=== PATIENT | female | born 2000 | race Caucasian/White ===

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

== ENCOUNTER 2021-01-11 00:33 | Inpatient (IN) | payer MEDICAID ==
[~2021-01-11] VITALS: Ht 157.5 cm; Wt 54.9 kg
[~2021-01-11 00:33] MED LIST changes: +CEFTIN500 MG PO; +CEPHALEXIN500 M1 PO; +NORCO 325 MG-51 TAB PO; +ZOFRAN ODT4 MG PO
[2021-01-11 02:15] LABS: COLLECTION METHOD CLEAN CATCH
[2021-01-11 02:21] LABS: BASO % 0.3 % (0.0-2.0); EOS # 0.3 K/mm3 (0.0-0.7); EOS % 2.2 % (0-4.0); GRAN # 8.9 K/mm3 (1.4-6.5); GRAN % 75.4 % (42.2-75.2); HEMOGLOBIN 12.1 g/dl (12.0-15.0); LYMPH # 1.8 K/mm3 (1.2-3.4); MEAN CELL VOLUME 91 fl (80.0-95.0); MEAN CORPUSCULAR HEMOGLOBIN 31 pg (26.0-32.0); MEAN CORPUSCULAR HGB CONC 34 g/dl (33.0-37.0); MEAN PLATELET VOLUME 9.6 fl (7.4-10.4); MONO # 0.8 K/mm3 (0.1-0.6); MONO % 6.8 % (1.7-9.3); PLATELET COUNT 259 K/mm3 (130-400); RED BLOOD COUNT 3.88 M/mm3 (4.10-5.30); REDCELL DISTRIBUTION WIDTH-CV 12.1 % (11.5-14.5)
[2021-01-11 02:25] LABS: HEMATOCRIT 35.3 % (35.0-45.0)
[2021-01-11 02:31] LABS: MUCOUS Present /lpf; PH 6 (5-8); URINE APPEARANCE Hazy; URINE BACTERIA Rare /hpf; URINE BILIRUBIN Negative (NEGATIVE); URINE BLOOD 1+ (NEGATIVE); URINE COLOR Yellow; URINE GLUCOSE Negative (NEGATIVE); URINE KETONE Negative (NEGATIVE); URINE LEUKOCYTE ESTERASE 1+ (NEGATIVE); URINE NITRATE Negative (NEGATIVE); URINE PROTEIN(semi-quant) Negative (NEGATIVE); URINE UROBILINOGEN Negative (NEGATIVE)
[2021-01-11 02:44] LABS: ALBUMIN 3.3 gm/dL (3.5-5.0); BILIRUBIN,TOTAL 0.5 mg/dL (0.2-1.2); C-REACTIVE PROTEIN 12.1 mg/dL (0.00-0.50); CALCIUM 9.1 mg/dL (8.4-10.2); CREATININE, serum 0.72 mg/dL (0.57-1.11); POTASSIUM 3.9 mmol/L (3.5-4.5); TOTAL PROTEIN 6.8 gm/dL (6.2-8.1)
[2021-01-11 08:43] LABS: BASO % 0.3 % (0.0-2.0); EOS # 0.3 K/mm3 (0.0-0.7); EOS % 3.1 % (0-4.0); GRAN # 6.9 K/mm3 (1.4-6.5); GRAN % 70.2 % (42.2-75.2); LYMPH # 1.8 K/mm3 (1.2-3.4); LYMPH % 18.2 % (20.0-51.0); MEAN CELL VOLUME 90 fl (80.0-95.0); MEAN CORPUSCULAR HEMOGLOBIN 31 pg (26.0-32.0); MEAN CORPUSCULAR HGB CONC 35 g/dl (33.0-37.0); MEAN PLATELET VOLUME 9.3 fl (7.4-10.4); MONO # 0.8 K/mm3 (0.1-0.6); MONO % 7.9 % (1.7-9.3); PLATELET COUNT 230 K/mm3 (130-400); RED BLOOD COUNT 3.85 M/mm3 (4.10-5.30); REDCELL DISTRIBUTION WIDTH-CV 12.1 % (11.5-14.5)
[2021-01-11 08:58] LABS: CALCIUM 8.9 mg/dL (8.4-10.2); CREATININE, serum 0.68 mg/dL (0.57-1.11); POTASSIUM 3.8 mmol/L (3.5-4.5)
[2021-01-11 09:03] LABS: HEMATOCRIT 34.7 % (35.0-45.0)
--- NOTE | 2021-01-11 14:34 | NUR ---
REPORT RCVD FROM ALANNAH JAMESON IN ER. UROLOGY WAS TO BE CONSULTED, HOWEVER CALLED CONSULT TO DR. REED OFFICE; WOODYARD CRANE OPERATOR AT OFFICE WILL TEXT HIM AND HE WILL CALL BACK.
[2021-01-11] MEDS ORDERED: HAIRSKINNAILS PO (15:40)
[2021-01-11] MEDS ORDERED: AZO URINARY PAI95 MG (15:41)
[2021-01-11] MEDS ORDERED: MIGRAINE MEDICATION PO (15:45)
[2021-01-11] MEDS ORDERED: VITAMIN D31000 I1 PO (15:49)
[2021-01-11] MEDS ORDERED: CRANBERRY250 MG PO (15:51)
--- NOTE | 2021-01-11 16:00 | NUR ---
PT IS LAYING IN BED, A&O X 4, C/O /10 PAIN ADMINISTERED MORPHINE.
[2021-01-11 20:42] VITALS: BP 105/57; PULSE 104; TEMP 98.9
--- NOTE | 2021-01-11 21:10 | NUR ---
Patient is in bed, alert and oriented x 4, VSS, reports pain at 6 out of 10, toradol provided. Assessment completed, no further needs at this time. Call light within reach.
[2021-01-12 00:09] VITALS: BP 110/60; PULSE 92; TEMP 99
[2021-01-12 04:26] VITALS: BP 107/60; PULSE 99; TEMP 98.9
[2021-01-12 06:25] LABS: BASO % 0.3 % (0.0-2.0); EOS # 0.4 K/mm3 (0.0-0.7); EOS % 4.6 % (0-4.0); GRAN # 4.8 K/mm3 (1.4-6.5); GRAN % 61.3 % (42.2-75.2); HEMOGLOBIN 11.4 g/dl (12.0-15.0); LYMPH # 1.8 K/mm3 (1.2-3.4); LYMPH % 23.4 % (20.0-51.0); MEAN CELL VOLUME 89 fl (80.0-95.0); MEAN CORPUSCULAR HEMOGLOBIN 31 pg (26.0-32.0); MEAN CORPUSCULAR HGB CONC 35 g/dl (33.0-37.0); MEAN PLATELET VOLUME 9.2 fl (7.4-10.4); MONO # 0.8 K/mm3 (0.1-0.6); MONO % 10.1 % (1.7-9.3); PLATELET COUNT 259 K/mm3 (130-400); RED BLOOD COUNT 3.68 M/mm3 (4.10-5.30); REDCELL DISTRIBUTION WIDTH-CV 11.8 % (11.5-14.5)
[2021-01-12 06:26] LABS: HEMATOCRIT 32.8 % (35.0-45.0)
[2021-01-12 06:47] LABS: CREATININE, serum 0.61 mg/dL (0.57-1.11); POTASSIUM 4.2 mmol/L (3.5-4.5)
--- NOTE | 2021-01-12 07:06 | NUR ---
Patient had a calm night. She was taken pain medication PRN. All needs met. Shift report given to day nurse.
[2021-01-12 07:59] VITALS: BP 105/56; PULSE 86; TEMP 98
--- NOTE | 2021-01-12 10:27 | NUR ---
PT ASLEEP AND LAYING IN BED. PT WAS SLEEPING ON IV LINE, REPOSITIONED IV LINE TO STOP OBSTRUCTION. IV FLUIDS, PT HAS NO COMPLAINTS AT THIS TIME, JUST TIRED. PT WANTED TO WAIT TO TAKE MULTIVITAMIN AND GET THE FLU SHOT DUE TO BEING TIRED AND WANTING TO SLEEP. CALL LIGHT IN REACH, NO NEEDS AT THIS TIME.
--- NOTE | 2021-01-12 10:35 | NUR ---
MADDY met with the patient to discuss discharge plan. The patient lives in [place] with her boyfriend, Gilbert (ph#[phone]), and is a student at [employer]. She reports independence with ADLs and does not have any DME. The patient does not have a PCP here. She was interested in receiving a list of [place] providers. MADDY provided her with that list and also informed her of [facility] with [employer]. She receives her medications from [facility] and reports no difficulties obtaining her meds. Her parents: Fatoumata and Hima are her next of kin. The patient reports that she is not close to them and that she recently just started talking to them again. The patient was interested in SW contacting the Office of Student Life at [employer] to notify that she is here. MADDY notified the Office of Student Life. The patient plans to return home with her boyfriend upon discharge. No additional needs at this time. *Discharge plan: home with boyfriend*
--- NOTE | 2021-01-12 11:38 | NUR ---
first visit from the mold filler. No needs right now.
[2021-01-12 11:59] VITALS: BP 109/52; PULSE 82; TEMP 98.5
--- NOTE | 2021-01-12 18:12 | NUR ---
PT LAYING IN BED, STAYED IN BED MOST OF DAY. PT SEEMS TO HAVE DECREASED PAIN, ONLY GAVE TYENOL AND TORADOL TODAY. PT HAS BEEN PLEASANT AND COOPERATIVE TODAY. PT RECEIVED FLU SHOT AND TOLERATED WELL. PT STATES REDUCED PAIN WITH MEDICATION. CALL LIGHT IN REACH, NO NEEDS AT THIS TIME.
[2021-01-12 19:09] VITALS: BP 118/58; PULSE 82; TEMP 98.8
--- NOTE | 2021-01-12 21:30 | NUR ---
Patient is resting in bed, alert and oriented x 4, boyfriend in room. Continues with moderate pain in the right side of the abdomen. Assessment completed, no further needs at this time. Call light within reach.
[2021-01-13 00:56] VITALS: BP 111/55; PULSE 82; TEMP 98.6
[2021-01-13 04:41] VITALS: BP 104/57; PULSE 61; TEMP 98.3
[2021-01-13 06:35] LABS: BASO % 0.3 % (0.0-2.0); EOS # 0.4 K/mm3 (0.0-0.7); EOS % 6.2 % (0-4.0); GRAN # 3.5 K/mm3 (1.4-6.5); GRAN % 51.6 % (42.2-75.2); HEMOGLOBIN 11.6 g/dl (12.0-15.0); LYMPH # 2.1 K/mm3 (1.2-3.4); MEAN CELL VOLUME 90 fl (80.0-95.0); MEAN CORPUSCULAR HEMOGLOBIN 31 pg (26.0-32.0); MEAN CORPUSCULAR HGB CONC 34 g/dl (33.0-37.0); MEAN PLATELET VOLUME 9.3 fl (7.4-10.4); MONO # 0.7 K/mm3 (0.1-0.6); MONO % 10.6 % (1.7-9.3); PLATELET COUNT 309 K/mm3 (130-400); REDCELL DISTRIBUTION WIDTH-CV 11.6 % (11.5-14.5)
--- NOTE | 2021-01-13 06:42 | NUR ---
Patient had a calm night. No voiding issues. Continues with pain control PRN. Shift report given to day RN.
[2021-01-13 06:45] LABS: HEMATOCRIT 34.3 % (35.0-45.0)
[2021-01-13 07:03] LABS: CALCIUM 9.3 mg/dL (8.4-10.2); CREATININE, serum 0.62 mg/dL (0.57-1.11); POTASSIUM 3.9 mmol/L (3.5-4.5)
--- NOTE | 2021-01-13 07:09 | NUR ---
PT LAYING IN BED. CALL LIGHT IN REACH. NO NEEDS AT THIS TIME
[2021-01-13 08:11] VITALS: BP 105/58; PULSE 71; TEMP 98.3
[2021-01-13] MEDS ORDERED: OMNICEF 300MG300 MG PO (08:49)
[2021-01-13] MEDS ORDERED: VITAMINC1000TA PO (08:51)
[2021-01-13] MEDS ORDERED: PROBIOTIC ACID1 EAC3 PO (08:51)
--- NOTE | 2021-01-13 10:25 | NUR ---
PT IS SITTING UPRIGHT IN BED, SOME COMPLAINTS OF SORENESS IN BACK STATES "MIGHT BE THE BED" PT REPOSITIONED AND TOLD IF GETS WORSE NOTIFY THIS RN. CALL LIGHT IN REACH, PT HAS NO COMPLAINTS, NO NEEDS AT THIS TIME
--- NOTE | 2021-01-13 10:55 | NUR ---
PT IV DISCONTINUED, EDUCATION AND DISCHARGE INSTRUCTIONS GIVEN. THIS RN TO ESCORT PT DOWNSTAIRS TO RIDE HOME. PT HAS NO QUESTIONS ABOUT DISCHARGE INSTRUCTIONS. PT AMBULATORY TO EXIT. PT SIGNED PAPERWORK AND DISCHARGED AT 1100.
== END 2021-01-13 11:00 | disposition home or self-care (01) | DRG 872 ==
LOC: COL.ER 00:33 → MEDICAL 05:04 → EDBEDREQ 13:08 → MEDICAL 01-13 11:00
PROVIDERS: Emergency Medicine; Physician Assistant; Student in an Organized Health Care Education/Training Program; ADMIT Student in an Organized Health Care Education/Training Program
DX: A41.51 Sepsis due to Escherichia coli [E. coli] (principal); N12 Tubulo-interstitial nephritis, not specified as acute or chronic; G43.909 Migraine, unspecified, not intractable, without status migrainosus; N30.90 Cystitis, unspecified without hematuria
CPT/HCPCS: 99223-AI; 99232-AI; 99239; J0692; J0696; J1885; J2270; J2405; J3010; J7030; Q9967

== ENCOUNTER 2021-01-26 17:24 | Emergency (ER) | payer MEDICAID ==
[~2021-01-26] VITALS: Ht 157.5 cm; Wt 47.3 kg
[~2021-01-26 17:24] MED LIST changes: +AZO URINARY PAI95 MG; +CRANBERRY250 MG PO; +HAIRSKINNAILS PO; +MIGRAINE MEDICATION PO; +OMNICEF 300MG300 MG PO; +PROBIOTIC ACID1 EAC3 PO; +VITAMIN D31000 I1 PO; +VITAMINC1000TA PO
[2021-01-26 19:03] VITALS: BP 120/60; PULSE 78; TEMP 98.5
== END 2021-01-26 19:03 | disposition home or self-care (01) ==
LOC: COL.ER 17:24
DX: R19.5 Other fecal abnormalities (principal)

== ENCOUNTER 2021-08-19 17:47 | Emergency (ER) | payer MEDICAID ==
[~2021-08-19] VITALS: Ht 157.5 cm; Wt 49.1 kg
[2021-08-19 17:54] VITALS: BP 119/63; TEMP 98.1
[2021-08-19 18:53] LABS: BASO # 0.1 K/mm3 (0.0-0.2); BASO % 0.5 % (0.0-2.0); EOS # 0.2 K/mm3 (0.0-0.7); EOS % 1.9 % (0.0-4.0); GRAN # 5.7 K/mm3 (1.4-6.5); GRAN % 58.6 % (42.2-75.2); HEMATOCRIT 39.3 % (35.0-45.0); HEMOGLOBIN 13.8 g/dl (12.0-15.0); LYMPH # 3.1 K/mm3 (1.2-3.4); LYMPH % 31.1 % (20.0-51.0); MEAN CELL VOLUME 88 fl (80.0-95.0); MEAN CORPUSCULAR HEMOGLOBIN 31 pg (26-32); MEAN CORPUSCULAR HGB CONC 35 g/dl (33.0-37.0); MEAN PLATELET VOLUME 9.2 fl (7.4-10.4); MONO # 0.8 K/mm3 (0.1-0.6); MONO % 7.7 % (1.7-9.3); PLATELET COUNT 305 K/mm3 (130-400); RED BLOOD COUNT 4.45 M/mm3 (4.10-5.30); REDCELL DISTRIBUTION WIDTH-CV 11.9 % (11.5-14.5)
[2021-08-19 19:13] LABS: ALBUMIN 4.2 gm/dL (3.5-5.0); BILIRUBIN,TOTAL 0.7 mg/dL (0.2-1.2); C-REACTIVE PROTEIN 0.02 mg/dL (0.00-0.50); CREATININE, serum 0.75 mg/dL (0.57-1.11); POTASSIUM 3.7 mmol/L (3.5-4.5); TOTAL PROTEIN 7.1 gm/dL (6.2-8.1)
[2021-08-19 19:21] LABS: COLLECTION METHOD CLEAN CATCH
[2021-08-19 19:28] LABS: MUCOUS Present (NOT PRESENT); PH 6 (5-8); SQUAMOUS EPITHELIAL 0-2 /hpf (0-10); URINE APPEARANCE Clear (CLEAR/HAZY); URINE BACTERIA Rare /hpf (NONE SEEN); URINE BILIRUBIN Negative (NEGATIVE); URINE BLOOD Negative (NEGATIVE); URINE COLOR Yellow (YELLOW); URINE GLUCOSE Negative (NEGATIVE); URINE KETONE Negative (NEGATIVE); URINE LEUKOCYTE ESTERASE Negative (NEGATIVE); URINE NITRATE Negative (NEGATIVE); URINE PROTEIN(semi-quant) Negative (NEGATIVE); URINE RBC 0-2 /hpf (0-2); URINE UROBILINOGEN Negative (NEGATIVE)
[2021-08-19 20:10] VITALS: PULSE 98
== END 2021-08-19 20:10 | disposition home or self-care (01) ==
LOC: COL.ER 17:47
PROVIDERS: Nurse Practitioner
DX: N89.8 Other specified noninflammatory disorders of vagina (principal)
CPT/HCPCS: J1885; J2405; J7030